=== PATIENT | female | born 1935 | race Caucasian/White ===

== ENCOUNTER 2019-03-24 05:09 | Observation (INO) ==
--- NOTE | 2019-02-18 09:24 | EKG Report ---
Test Performed on : 02/18/2019 09:20:10 AM Test Reason : PAT Blood Pressure : / mmHG Vent. Rate : 086 BPM Atrial Rate : 086 BPM P-R Int : 146 ms QRS Dur : 098 ms QT Int : 370 ms P-R-T Axes : 062 042 -44 degrees QTc Int : 442 ms Normal sinus rhythm. Possible Lateral infarct , age undetermined Inferior infarct , age undetermined Abnormal ECG No previous ECGs available Confirmed by Apple STEWARD, Gage Doyle ([id number]) on 02/18/2019 10:13:40 PM
[2019-02-18 11:52] LABS: HEMATOCRIT 41.9 % (37.0-47.0); HEMOGLOBIN 13.9 g/dL (12.0-16.0); MCH 28.7 PG (27-31); MCHC 33.2 g/dL (33-37); MCV 86.4 FL (81-99); MPV 11.6 FL (7.4-10.4); RBC 4.85 XMIL (4.2-5.4); RDW 15.7 % (11.5-14.5); WBC 11.82 X1000 (4.8-10.8)
[2019-02-18 12:22] LABS: ESTIMATED GFR > 60
[2019-02-18 12:32] LABS: FREE T4 1.7 ng/dL (0.93-1.70); T4 9.93 ug/dL (4.60-12.00)
[2019-02-18 12:33] LABS: AGAP 16; BUN 12 mg/dL (8-22); CALCIUM 10.3 mg/dL (8.8-10.2); CHLORIDE 89 mmol/L (98-107); COSMO 265; CREATININE 0.5 mg/dL (0.5-0.9); GLUCOSE 111 mg/dL (70-104); POTASSIUM 3.8 mmol/L (3.5-5.1); SODIUM 132 mmol/L (136-145); TCO2 27 mmol/L (25-35)
[2019-03-24] MEDS ORDERED: LR 1,000 ML ONE (05:37)
[2019-03-24] MEDS ORDERED: VANCOMYCIN 1 GM/NS 1 GM/250 ML IVPB IV ONE (06:00)
[2019-03-24] MEDS ORDERED: LOPRESSOR ONE (06:03)
[2019-03-24] MEDS ORDERED: LOPRESSOR PO ONE (06:03)
[2019-03-24] MEDS ORDERED: DUONEB (A & A) INH ONE ×2 (06:24→08:50)
[2019-03-24 06:28] LABS: HEMATOCRIT 33.6 % (37.0-47.0); HEMOGLOBIN 11.3 g/dL (12.0-16.0); MCH 28.7 PG (27-31); MCHC 33.6 g/dL (33-37); MCV 85.3 FL (81-99); MPV 11.3 FL (7.4-10.4); RBC 3.94 XMIL (4.2-5.4); RDW 15.9 % (11.5-14.5); WBC 10.31 X1000 (4.8-10.8)
[2019-03-24] MEDS ORDERED: ROBINUL ONE ×3 (06:34→08:10)
[2019-03-24] MEDS ORDERED: SENSORCAINE 0.5%-EPI 1:200,000 ONE (06:36)
[2019-03-24] MEDS ORDERED: DIPRIVAN 1% ONE (06:43)
[2019-03-24] MEDS ORDERED: FENTANYL ONE (06:43)
[2019-03-24] MEDS ORDERED: XYLOCAINE-MPF 2% ONE (06:43)
[2019-03-24] MEDS ORDERED: ZOFRAN ONE (06:43)
[2019-03-24] MEDS ORDERED: QUELICIN (DOSE) ONE (06:45)
[2019-03-24 06:47] LABS: AGAP 17; BUN 18 mg/dL (8-22); CALCIUM 9.7 mg/dL (8.8-10.2); CHLORIDE 95 mmol/L (98-107); COSMO 273; CREATININE 0.4 mg/dL (0.5-0.9); ESTIMATED GFR > 60; GLUCOSE 110 mg/dL (70-104); POTASSIUM 3.8 mmol/L (3.5-5.1); SODIUM 135 mmol/L (136-145); TCO2 23 mmol/L (25-35)
[2019-03-24] MEDS ORDERED: SODIUM CHLORIDE 0.9% 10 ML ONE (07:09)
[2019-03-24] MEDS ORDERED: LTA KIT ONE (07:09)
[2019-03-24] MEDS ORDERED: ALBUMIN 25% ONE (07:15)
[2019-03-24] MEDS ORDERED: OFIRMEV 1000 MG/ISOTONIC SOLN 1,000 MG/100 ML BOTTLE ONE (07:18)
[2019-03-24] MEDS ORDERED: DECADRON ONE (07:51)
[2019-03-24] MEDS ORDERED: NEOSTIGMINE ONE (08:10)
[2019-03-24] MEDS ORDERED: DUONEB (A & A) ONE (08:47)
[2019-03-24] MEDS ORDERED: NS 1,000 ML ONE (08:59)
[2019-03-24] MEDS: DILAUDID ONE ×2 (09:03→09:23)
--- NOTE | 2019-03-24 09:34 | OPERATIVE NOTE ---
PROCEDURE DATE: 03/24/2019 NAME OF PROCEDURE: Total thyroidectomy. SURGEON: Slim Mcallister MD. PLAY READER: HALI Hardin. PREOPERATIVE DIAGNOSIS: Multinodular goiter with symptoms, hyperactive nodule in the right upper pole. POSTOPERATIVE DIAGNOSIS: Multinodular goiter with symptoms, hyperactive nodule in the right upper pole. FINDINGS: The gland was multinodular. There was a nodule in the inferior pole of the right gland, similar to what was elsewhere so we felt that we should remove it as well, thus necessitating a total thyroidectomy. DESCRIPTION OF PROCEDURE: Satisfactory general endotracheal anesthesia was achieved. The neck was gently extended. No roll was placed behind her shoulder. We identified the skin line transversely. We prepped and draped the neck in a sterile fashion. That skin line that we had identified, we marked 5 cm on each side of the midline. We then used 0.5 Marcaine with epinephrine, and anesthetized the skin and subcutaneous tissue. We then incised the skin 5 cm on each side of the midline in the skin crease. We carried our incision beneath the platysma, raised the subplatysmal planes cephalad to the thyroid prominence and inferiorly to the sternal notch. We placed Gelpi retractors on each side. We then incised the cervical fascia in the midline. We then started dissecting the muscle off the underlying thyroid gland. We had addressed the left side first. Placed a Army-Cookson retractor inside the muscle. We delivered the right lobe up, which was the larger cold nodule on nuclear medicine scan. We then dissected the superior pole vessels, clamped and divided them, and suture ligated them with a 2-0 silk suture ligature. We left the hemostat attached to the portion of the gland to roll the left lobe over. We then dissected along the surface of the gland to stay away from the contiguous parathyroids, as well as the recurrent nerve. We identified the trachea. We then, as I said, stayed very close to the gland and dissected the tissue off the gland. We identified the recurrent nerve and stayed away from it. We divided the inferior pole vessels right at the gland surface. I felt that we stayed away from the parathyroids adequately and then came all the way down to the trachea, and rolled the left lobe off the trachea to the right side. As I said, the recurrent nerve was protected and obvious in our dissection. We then turned our attention to the right side and we did a similar procedure on the right. It was apparent that there was an inferior pole nodule on the right. I did not think I should leave that. The right lobe seemed to wrap around the trachea and esophagus more so than the left lobe. As we dissected the superior pole, we clamped and divided the superior pole vessels, suture ligated them with 2-0 silk, and then again rolled the gland medially. Stayed right on the surface of the gland and the contiguous tissue from the surface of the gland to try to preserve the parathyroids. Again, we identified the recurrent nerve and protected it from harm. One lymph node or nodule was left in the tissue inferiorly on the right side, which may or may not have been some thyroid tissue or a lymph node. As we rolled the gland off, we then amputated it and sent it en toto to the pathologist for permanent section. Hemostasis was satisfactory. We placed a Desmond drain within the thyroid lobe fossa to drain it, secured it to the skin with a 2-0 silk. We then closed the cervical fascia with interrupted 0 Polysorb. We closed the platysma with interrupted 3-0 Polysorb. Once again, we injected with 0.5 Marcaine with epinephrine and then closed the skin with a 4-0 Polysorb subcuticular stitch. Telfa and a sterile OpSite were applied. She tolerated it well and was sent to the recovery room in satisfactory condition. cc: Slim Mcallister MD
[2019-03-24] MEDS ORDERED: LASIX PO PRN (10:09)
[2019-03-24] MEDS ORDERED: DILAUDID IV PRN (10:09)
[2019-03-24] MEDS ORDERED: ZOFRAN IV PRN (10:09)
[2019-03-24] MEDS ORDERED: INDERAL PO PRN (10:09)
[2019-03-24] MEDS ORDERED: ATIVAN PO PRN (10:09)
[2019-03-24] MEDS ORDERED: NORCO-10 PO PRN (10:09)
[2019-03-24] MEDS ORDERED: PHENERGAN PO PRN (10:09)
[2019-03-24] MEDS ORDERED: MOVANTIK PO ONE (10:09)
[2019-03-24] MEDS ORDERED: ZOFRAN ODT PO PRN (10:09)
[2019-03-24] MEDS: ROBAXIN PO SCH ×3 (10:55→16:31)
[2019-03-24] MEDS: NORVASC PO SCH ×2 (10:55→20:17)
[2019-03-24] MEDS: LOPRESSOR PO SCH ×2 (10:56→20:17)
[2019-03-24] MEDS: GLUCOPHAGE XR PO SCH ×2 (10:58→20:17)
[2019-03-24] MEDS: ZETIA PO SCH (10:58)
[2019-03-24] MEDS: LINZESS PO SCH (10:58)
[2019-03-24] MEDS: CARAFATE PO SCH ×2 (10:58→14:04)
[2019-03-24] MEDS: NS 1,000 ML IV SCH (10:59)
[2019-03-24] MEDS: PRINIVIL PO SCH (10:59)
[2019-03-24] MEDS: HYDROCHLOROTHIAZIDE PO SCH (10:59)
[2019-03-24] MEDS: PEPCID PO SCH (10:59)
[2019-03-24] MEDS: SLOW-MAG PO SCH (10:59)
[2019-03-24] MEDS: COLACE PO SCH (11:00)
[2019-03-24] MEDS: CARAFATE LIQUID PO SCH ×2 (16:50→20:17)
--- NOTE | 2019-03-24 17:24 | Diag Imaging Result Doc PS360 ---
CHEST-PORTABLE - 03/24/2019 INDICATION: respiratory failure COMPARISON: None FINDINGS: There are CABG changes. Heart size is top normal. Pulmonary vascularity is somewhat distended. There is minimal patchy atelectasis or infiltrate in both lung bases. IMPRESSION: Nonspecific findings. Electronically signed by Joshua Brownlee 03/24/2019 5:22 PM
--- NOTE | 2019-03-24 19:55 | GENERAL SURGERY PROGRESS NOTE ---
DATE: 03/24/2019 It is 4 o'clock in the afternoon. She is doing generally well. Her Chvostek's sign is negative. She has had negligible amount drainage. Her neck is not significantly swollen. She is breathing comfortably. We will advance her diet and check her calcium in the morning. cc: Slim Mcallister MD
[2019-03-24] MEDS: DUONEB (A & A) INH SCH ×2 (20:30→23:20)
[2019-03-24] MEDS ORDERED: LIPITOR PO SCH (21:00)
--- NOTE | 2019-03-24 22:12 | PULMONOLOGY CONSULTATION ---
DATE: 03/24/2019 REQUESTING PHYSICIAN: Dr. Moore. REASON FOR CONSULTATION: Respiratory failure after surgery. HISTORY OF PRESENT ILLNESS: Ms. Benites is an 83-year-old white female with a 70 pack-year history for tobacco (started to smoke around the age of 12). The patient has been diagnosed with chronic obstructive pulmonary disease, and has recently been using inhalers and courses of antibiotics. The patient underwent a total thyroidectomy today for multinodular goiter. Following the surgery, she was requiring ongoing nasal cannula to prevent hypoxemia. PAST MEDICAL HISTORY: 1. Chronic obstructive pulmonary disease, with ongoing tobacco use. 2. Hypertension. 3. Chronic rectal pain, requiring periodic nerve blocks. 4. Hypertension. 5. Coronary artery disease, coronary artery bypass grafting. 6. Diabetes mellitus. 7. Status post cataract removal. 8. 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 9. History of back surgery. SOCIAL HISTORY: Continued tobacco use. FAMILY HISTORY: Noncontributory to current presentation. REVIEW OF SYSTEMS: Notable for cough with intermittent sputum production. PHYSICAL EXAMINATION: General: Reveals a well developed, well nourished female who appears younger than her stated age of 83. Vital Signs: She is afebrile. Blood pressure 122/85, heart rate 118, respiratory rate 27, oxygen saturation 93% on 6 L per nasal cannula. HEENT: Pupils are equal and reactive. Oropharynx appears clear. Neck: Supple. Neck reveals surgical dressings associated with thyroidectomy. Chest: Scattered rhonchi bilaterally with prolonged expiratory phase. Cardiac: S1, S2. Abdomen: Soft. Extremities: Without edema. LABORATORIES: Chest x-ray reveals hyperinflation, prior coronary artery bypass grafting, generous cardiac silhouette, with atelectasis in the lung bases. IMPRESSION: An 83-year-old with: 1. Hypoxemia. 2. Bibasilar atelectasis. 3. Chronic obstructive pulmonary disease. 4. Ongoing tobacco use. RECOMMENDATION: 1. Initiate spirometry. 2. Initiate bronchodilators. 3. Smoking cessation education was discussed. 4. Wean oxygen as tolerated. cc: MD Slim Berrios MD
[2019-03-25] MEDS: MUCINEX PO SCH ×2 (00:21→09:51)
[2019-03-25 03:57] LABS: ALLEN TEST YES; BE 1.3 mmoll (-3.0-3.0); BLOOD TYPE ARTERIAL; HCO3-(ACT) 25.8 mmoll (20.0-26.0); METHB 1.1 % (0.0-1.5); O2(CT) 13.9 mL/dL (15.0-23.0); O2HB 90.4 % (95.0-99.0); PCO2(98.6) 34 mmHg (35-45); PO2(98.6) 54 mmHg (60-100); SAMPLE BLOOD; SAO2 92.9 % (95.0-100.0); THB 10.9 g/dL (11.5-17.4); pH(98.6) 7.47 (7.35-7.45)
[2019-03-25 04:00] LABS: MODALITY CANNULA
[2019-03-25 05:27] LABS: URINE SOURCE CLEAN CATCH
[2019-03-25 05:30] LABS: BILIRUBIN URINE NEGATIVE (NEGATIVE); BLOOD URINE NEGATIVE (NEGATIVE); COLOR YELLOW; GLUCOSE URINE TRACE mg/dL (NEGATIVE); KETONE URINE NEGATIVE (NEGATIVE); LEUKOCYTES URINE NEGATIVE (NEGATIVE); NITRITE URINE NEGATIVE (NEGATIVE); PH URINE 6.5; PROTEIN URINE NEGATIVE (NEGATIVE); SP GRAVITY URINE 1.013; TURBIDITY URINE CLEAR (CLEAR); UR EPITHELIAL CELLS <10 /HPF (<10); URINE BACTERIA NEGATIVE /HPF; URINE RBC <10 /HPF (<10); URINE WBC <10 /HPF (<10); UROBILINOGEN URINE NORMAL (NORMAL)
[2019-03-25] MEDS ORDERED: NS 500 ML IV ONE (05:34)
[2019-03-25] MEDS ORDERED: NS 500 ML ONE (05:54)
[2019-03-25 06:43] LABS: AGAP 18; BUN 10 mg/dL (8-22); CALCIUM 9.9 mg/dL (8.8-10.2); CHLORIDE 93 mmol/L (98-107); COSMO 265; CREATININE 0.4 mg/dL (0.5-0.9); ESTIMATED GFR > 60; GLUCOSE 123 mg/dL (70-104); POTASSIUM 3.9 mmol/L (3.5-5.1); SODIUM 132 mmol/L (136-145); TCO2 21 mmol/L (25-35)
[2019-03-25] MEDS ORDERED: PRILOSEC PO SCH (07:00)
[2019-03-25] MEDS ORDERED: SYNTHROID PO SCH (07:00)
[2019-03-25] MEDS: DUONEB (A & A) INH SCH ×3 (07:47→15:58)
[2019-03-25 08:04] LABS: ALLEN TEST NO; BLOOD TYPE ARTERIAL; HCO3-(ACT) 26.5 mmoll (20.0-26.0); O2(CT) 14.6 mL/dL (15.0-23.0); O2HB 96.1 % (95.0-99.0); PCO2(98.6) 35 mmHg (35-45); PO2(98.6) 82 mmHg (60-100); SAMPLE BLOOD; SAO2 98.6 % (95.0-100.0); THB 10.7 g/dL (11.5-17.4); pH(98.6) 7.47 (7.35-7.45)
[2019-03-25 08:08] LABS: MODALITY CANNULA
[2019-03-25] MEDS: PRINIVIL PO SCH (09:51)
[2019-03-25] MEDS: NORVASC PO SCH (09:51)
[2019-03-25] MEDS: ZETIA PO SCH (09:51)
[2019-03-25] MEDS: HYDROCHLOROTHIAZIDE PO SCH (09:51)
[2019-03-25] MEDS: PEPCID PO SCH (09:51)
[2019-03-25] MEDS: COLACE PO SCH (09:51)
[2019-03-25] MEDS: CARAFATE LIQUID PO SCH (09:51)
[2019-03-25] MEDS: LOPRESSOR PO SCH (09:52)
[2019-03-25] MEDS: GLUCOPHAGE XR PO SCH (09:52)
[2019-03-25] MEDS: ROBAXIN PO SCH (09:53)
[2019-03-25] MEDS: SLOW-MAG PO SCH (09:53)
[2019-03-25] MEDS: LINZESS PO SCH (10:04)
[2019-03-25] MEDS: NS 1,000 ML IV SCH (10:05)
[2019-03-25 16:03] VITALS: BP 117/65
--- NOTE | 2019-03-25 21:03 | GENERAL SURGERY PROGRESS NOTE ---
DATE: 03/25/2019 SUBJECTIVE: Ms. Benites is doing well. She has no complaints. She is breathing satisfactorily. Her calcium today is 9.9. Chvostek sign is negative. Her breathing is satisfactorily. Her wound bandage is dry. Today, we will remove her drain and we will discharge her. She will return to see me in the office in a week. We will send her home on levothyroxine 100 mcg. cc: Slim Mcallister MD
== END 2019-03-25 17:10 | disposition home or self-care (01) ==
LOC: OR 05:09 → 2N 05:09
PROVIDERS: ADMIT Surgery; ATTEND Surgery
PROC: GE.THYR (2019-03-24 06:56)